=== PATIENT | male | born 1940 | race Caucasian/White ===

== ENCOUNTER → 2017-09-10 16:22 | Outpatient (CLI) | payer MEDICARE, OTHER, SELFPAY | PROVIDERS: Family Provider Family Medicine; PCP Family Medicine; Visit Provider Orthopaedic Surgery | DX: Z01.818 Encounter for other preprocedural examination (principal) | CPT/HCPCS: 93005 ==

== ENCOUNTER 2017-10-06 09:34 | Day surgery (SDC) | payer MEDICARE, OTHER, SELFPAY ==
[2017-10-02 13:54] VITALS: BMI 30.7
[2017-10-06] VITALS (12 sets, daily range): BP systolic 92–155; BP diastolic 47–80; PULSE 57–70; RESP 12–20; TEMP 35.8–36.3; O2SAT 90–98; BMI 30.4
[2017-10-06] MEDS: CELECOXIB 200 MG CAPSULE PO (10:13)
[2017-10-06] MEDS: LACTATED RINGERS 1,000 ML 42 ML IV (10:13)
[2017-10-06] MEDS: PREGABALIN 75 MG CAPSULE PO (10:13)
[2017-10-06] MEDS: ACETAMINOPHEN 325 MG TABLET 975 MG PO ×3 (10:13→22:11)
[2017-10-06] MEDS: fentaNYL 100 MCG/2 ML INJ IV (10:57)
[2017-10-06] MEDS: MIDAZOLAM 2 MG/2 ML VIAL IV (10:57)
--- NOTE | 2017-10-06 10:58 | SUR.PREOP ---
Femoral block done by Dr Reardon between 1045 and 1055. Patient rec'd 2L/min O2 via NC throughout. Fentanyl 50 mcg and Midazolam 2mg IV. Cardiac monitoring with RSR seen. Tolerated well.
--- NOTE | 2017-10-06 11:00 | SUR.PREOP ---
Block start time [1045] . Monitoring initiated and maintained throughout procedure. Oxygen and medications given per anesthesiologist instructions. Patient remained stable throughout procedure, no adverse reactions noted. Block end time [1055].
--- NOTE | 2017-10-06 11:35 | PM.PREOP ---
Pre-operative Note Interval Note Pre-op Check: Yes History & Physical Reviewed by Physician and Yes Exam Performed Changes: No
[2017-10-06] MEDS: CEFAZOLIN 2 GM/100 ML FROZ.PIGGY IV ×2 (11:45→21:00)
--- NOTE | 2017-10-06 12:18 | SUR.OPER ---
Supine on padded OR bed. Pillow under head, arms secured on padded armboards <90 degree abduction. Safety belt across torso. Non-operative leg secured with tape over blanket over lower leg. Operative leg secured in DeMayo/Kin positioner.
[2017-10-06] MEDS: BUPIVACAINE 0.25% W/ EPI VIAL 50 ML INJ (12:32)
[2017-10-06] MEDS: BUPIVACAINE LIPOSOME 266 MG/20 ML VIAL INJ (12:33)
[2017-10-06] MEDS: SODIUM CHLORIDE 0.9% FLUSH 20 ML IV (12:40)
[2017-10-06] MEDS: MORPHINE 4 MG/ML INJ IV (12:42)
--- NOTE | 2017-10-06 13:36 | DI.RAD.S_ITS ---
PROCEDURE: XR KNEE RT 1TO2V INDICATIONS: post operative total right knee TECHNIQUE: 2 view(s) of the knee acquired. COMPARISON: [facility] [place], NEETA, XR KNEE ARTHRITIC SERIES RT, 07/23/2017, 15:28. FINDINGS: Bones: Patient is status post knee joint arthroplasty. Hardware components are in expected positions. Visualized bony structures are intact. Soft tissues: Overlying postoperative changes are noted. IMPRESSION: Acute postoperative changes of total right knee arthroplasty. Dictated by: Forrest Leger M.D. on 10/06/2017 at 14:34 Approved by: Forrest Leger M.D. on 10/06/2017 at 14:35
--- NOTE | 2017-10-06 13:39 | P.OP_ITS ---
Operative Date/Time/Diagnoses Date of procedure: 10/06/17 Time of procedure: 13:30 Pre-op diagnosis: Right knee osteoarthritis Post-op diagnosis: same Procedure & Clinicians Procedure: Right total knee replacement Same procedure as scheduled: Yes Indications: The patient has had progressively worsening right knee pain with radiographic changes consistent with arthritis. Non-operative management has failed and the patient has requested total knee replacement. The risks, benefits and alternatives to surgery were discussed with the patient prior to proceeding. Risks discussed included, but were not limited to, failure to relieve pain, stiffness, infection, nerve damage, deep venous thrombosis, pulmonary embolism, stroke, coma, heart attack, permanent paralysis and , as well as the potential need for eventual revision of the prosthetic. Surgeon: Kavon Freeman Pasteurizing Machine Operator: Bettie Dickey Click Yes if Unassisted: No Anesthesia Type: Spinal, Sedation, Peripheral nerve block and Local Operative Notes Findings: Severe medial and moderate patellofemoral osteoarthritis Closure Type: primary Specimen(s): none sent Implants & Drains: Implants used in this procedure were manufactured by the [employer] and [employer] and included the BCS II Journey total knee replacement with a size 8 right cobalt chromium femoral component, 7 right non porous tibial base plate, 9 mm cross-linked polyethylene tibial insert and a 38 mm oval ghada II patellar component. Applied: implant(s) Estimated Blood Loss (mL): 100 Blood products transfused: none Tourniquet time (min): 53 Procedure in detail: The patient was seen in the pre-operative area, where the patient identified the right knee as the operative site and this was marked with my initials. The patient received pre-operative antibiotics, and was taken to the operating room and placed on the operative table in the supine position. After satisfactory anesthesia, a multimedia engineer out was performed. The right leg was encircled with a tourniquet about the proximal thigh, and the leg was prepared from the toes to the tourniquet with ChloroPrep in the usual fashion and draped through sterile drapes. The leg was elevated and exsanguinated with Eschmark bandage and the tourniquet inflated to 250 mmHg pressure. The knee was approached through an approximately 18 cm incision centered over the patella and carried into the knee through a medial parapatellar arthrotomy. The anterior osteophytes and soft tissues were removed. The rotational landmarks of Valley's line and the transepicondylar axis were marked on the femur with electrocautery, and intramedullary guide holes for the femur and tibia were created. The distal femoral cut was made in 6 degrees of valgus using the intramedullary guide at the primary cut setting. The proximal tibial cut was then made using the intramedullary guide, taking 9 mm of bone off the less involved side. The extension gap was checked and the rotation of the femoral component confirmed with the gap balancing system. The anterior, posterior and chamfer cuts were then made. The posterior osteophytes and soft tissues were then removed. The posterior capsule was injected with part of a mixture of 50 ml 0.25% Marcaine mixed with 20 ml Exparel and 4 mg of morphine for post-operative pain control. The remainder of this mixture was injected into the capsule and subcutaneous tissues during cement curing. The tibia was prepared with the rotation set by an extra medullary guide. Trial tibial and femoral components were then placed and the intercondylar notch cut through the femoral trial. Range of motion was 0-135 degrees, with good stability throughout the range. The patella was then cut to accommodate the patellar prosthetic. There was no need for a lateral release. The trials were then removed, and the femoral hole plugged with a bone plug. The bone was prepared with pulsatile lavage, and dried with a sponge. Cement was applied and the final prosthetics placed. Excess cement was removed during and after cement curing. After confirming there was no extruded cement posteriorly, the final tibial insert was placed. The knee was copiously irrigated and the tourniquet deflated. Hemostasis was obtained. The capsule was closed with interrupted # 2 polyester suture. The subcutaneous layer was closed with 3-0 Vicryl, and the skin with a running 3-0 V-Lock suture and SteriStrips. An Aquacel Ag dressing was applied and the patient was taken to recovery having tolerated the procedure well. Complications: none Condition: stable Disposition: PACU Plan for aftercare: The patient will be maintained on a standard total knee replacement protocol with weight bearing as tolerated. The patient will receive aspirin and sequential compression devices for DVT prophylaxis. The patient will be discharged home when safe for the home environment.
--- NOTE | 2017-10-06 14:28 | SUR.PHASEI ---
Report called to JOAQUINA Henson. Pt transferred to the floor by JOAQUINA Stephenson.
[2017-10-06] MEDS: LACTATED RINGERS 1,000 ML 125 ML IV ×2 (14:47→23:57)
[2017-10-06] MEDS: HYDROMORPHONE 0.5 MG INJ IV (14:55)
[2017-10-06] MEDS: OXYCODONE IR 5 MG TABLET PO ×2 (15:17→22:35)
[2017-10-06] MEDS: IBUPROFEN 600 MG TABLET PO (16:30)
--- NOTE | 2017-10-06 18:03 | PT.IIE ---
Current Diagnoses Bilateral primary osteoarthritis of knee (10/06/17) Surgery Performed Operation Date: 10/06/17 11:45 Actual Procedures p Total Knee Arthroplasty(Right) - Kavon Freeman MD Surgical History (Last Updated 10/02/17 @ 14:52 by Akosua Ochoa, RN) H/O transurethral resection of prostate (Acute) Hx of elbow surgery (Acute) Hx of left inguinal hernia repair (Acute) Medical History (Last Updated 10/02/17 @ 14:52 by Akosua Ochoa, RN) Chronic cough (Acute) Elevated cholesterol (Acute) Hypothyroidism (Acute) Kidney stone (Acute) Physical Therapy Inpatient Evaluation/Re-Eval M1 PT/OT-IP Prior Functional Status Start: 10/06/17 17:49 Freq: NEEDED Status: Active Protocol: Document 10/06/17 17:45 DLM (Rec: 10/06/17 18:03 DLM [id number]) Medical Review Prior Functional Status Medical History Reviewed Yes Diet/Fluid Consistency Regular Communication WNL Mobility and Gait Independent without device, likes to walk 3 miles for exercise Activities of Daily Living and IADL's Independent Prior Functional Level (Other details) knee pain was interfering with his ability to walk before this sx Social History Household Members spouse Living Arrangements House Number of Floors (Floors) One Floor Number of Stairs To Enter/Railing? 3, rail Home Environment High Toilet Home Equipment Front Wheel Walker Straight Cane Employment Status Retired Additional Social History Comment he is borrowing a fWW ( bariatric), he wanted to get rails that attached to his toilet but was unable to find them before surgery M2 PT-IP Current Condition Start: 10/06/17 17:49 Freq: NEEDED Status: Active Protocol: Document 10/06/17 17:45 DLM (Rec: 10/06/17 18:03 DLM [id number]) Physical Therapy Current Condition Current Condition Evaluation Date 10/06/17 Treatment Diagnosis right TKA, impaired gait Onset Date 10/06/17 Weight Bearing Status Weight Bearing Status Weight Bear as Tolerated M3 PT-IP Subjective Start: 10/06/17 17:49 Freq: NEEDED Status: Active Protocol: Document 10/06/17 17:45 DLM (Rec: 10/06/17 18:03 DLM [id number]) Subjective Physical Therapy Visit Type Type Initial Evaluation Visit Start Time 14:50 Visit Stop Time 15:45 Total Visit Minutes 55 Number of SURVEY ASSOCIATE Visits 0 Physical Therapy Visit Comments Patient Comments His knee hurts when trying to lie straight, he wants to get out of bed Therapy Pain Assessment Pain When Pain Assessed After Treatment Pain Present Pain Present Pain Reported Location Rt Knee Intensity 5 Scale Used Numeric (1 - 10) Description Aching Pain Behaviors Wincing Pain Management Techniques Apply Cold Re-positioning M4 PT-IP Mobility and Gait Start: 10/06/17 17:49 Freq: NEEDED Status: Active Protocol: Document 10/06/17 17:45 DLM (Rec: 10/06/17 18:03 [facility] [id number]) PT-Bed Mobility Assessment Supine to Sit Supine to Sit Standby Assistance Sit to Supine Sit to Supine Minimal Assistance Scooting Scooting to Edge of Bed Standby Assistance PT-Transfer Assessment Sit to and From Stand Sit to and from Stand Contact Guard Assistance Equipment Transfer Assistive Device Gait Belt Front Wheeled Walker Transfers Transfer Destination Chair Transfer Technique Stand Step Pivot Transfer Ability Level of Assist Contact Guard Assistance Comments Mobility Comments pt incontinent of urine while moving this visit, depends put on to manage urine leakage Gait Assessment Gait Gait Assistance Required: Contact Guard Assist Distance (Feet) (feet) 10 Able to Maintain Weight Bearing Status Yes During Gait Assistive Devices Assistive Device Gait Belt Front Wheeled Walker Gait Deviations General Gait Pattern Antalgic Factors Limiting Gait Function Factors Limiting Gait Function Decreased Activity Tolerance Decreased Strength Limited Range of Motion Pain Comments Gait Comments He became nauseated during gait around his bed, sat on edge of bed but symptoms did not resolve, noted pt pale. Pt returned to supine where his symptoms improved. PT-Balance Assessment Sitting Balance and Reactions Static Sitting Balance Ability Normal Dynamic Sitting Balance Ability Normal Standing Balance and Reactions Static Standing Balance Ability Good Dynamic Standing Balance Ability Fair Device Used fWW M5 PT-IP Objective Assessments Start: 10/06/17 17:49 Freq: NEEDED Status: Active Protocol: Document 10/06/17 17:45 DLM (Rec: 10/06/17 18:03 [facility] [id number]) Orientation Orientation/Cognition Level of Alertness Alert Orientation Name Age Birthday Month Date Year Day of Week Place Situation Language Function Ability No Deficits Noted Safety Awareness Understands Safety Issues Memory Description No Deficits Noted Gross Range of Motion Upper Extremity ROM Assessment Within Functional Limits Lower Extremity ROM Assessment Right Impaired Impairments tolerated 90 degrees knee flexion in sitting, knee ext in supine lacking 20 degrees with pain Strength Upper Extremity Strength Assessment Within Functional Limits Lower Extremity Strength Assessment Right Impaired Hip able to move right LE in bed, can lift LE off bed with pain Knee knee ext seated 2+/5 Ankle DF 4+/5 Coordination Assessment Gross Coordination Gross Coordination WNL Sensation Assessment Sensation Gross Sensation Right LE Impaired Light Touch Impaired Sensation Description Numbness Comments Sensation Comments post-op numbness around right knee Muscle Tone Muscle Tone WNL Yes M6 PT-IP Treatment Start: 10/06/17 17:49 Freq: NEEDED Status: Active Protocol: Document 10/06/17 17:45 DLM (Rec: 10/06/17 18:03 DLM [id number]) Physical Therapy Treatment Exercises Exercises Ankle Pumps Education Education Provided Weight Bearing Status Safety M7 PT-IP Assessment and Plan Start: 10/06/17 17:49 Freq: NEEDED Status: Active Protocol: Document 10/06/17 17:45 DLM (Rec: 10/06/17 18:03 DLM [id number]) PT Summary Assessment and Plan Potential Rehabilitation Potential Good Status of Condition at Evaluation Evolving Summary Impairments Pain ROM Strength Balance Sensation Bed Mobility Transfers Gait Activity Tolerance Assessment Summary Decreased tolerance for activity this visit with pt getting nauseated and light- headed when up. He c/o difficulty managing his knee pain. Pt incontinent of urine this visit. Pt sat up in recliner and ambulated around the bed. He had to return to supine to manage his symptoms. He is movitated to return home at discharge. His is present and supportive. Will plan for discharge home in 1-2 more days as pt progresses. Goals Bed Mobility Goal Independent Transfer Goal Independent Front Wheeled Walker Gait Goal Independent Front Wheel Walker Gait Distance 100 Other Goals up and down 3 steps with rail and cane with SBA. Days to Meet Goals 3 Frequency of Treatment Frequency Of Treatment Twice a Day Treatment Plan Physical Therapy Treatment Plan Bed Mobility Training Transfer Training Gait Training Therapeutic Exercise Post Op Education Discharge Planning Hot or Cold Pack Other Recommendations and Next Treatment provide post-op packet, Focus monitor BP when up moving Recommendations To Nursing Amount of Assist Needed 1 Person Assist Discharge Recommendations PT Discharge Recommendations Home with Assistance Outpatient PT
[2017-10-06] MEDS: DOCUSATE 100 MG CAPSULE PO (22:11)
[2017-10-06] MEDS: ATORVASTATIN 20 MG TABLET PO (22:12)
[2017-10-06] MEDS: ASPIRIN EC 81 MG TABLET PO (22:12)
[2017-10-06] MEDS: TAMSULOSIN 0.4 MG CAPSULE PO (22:12)
[2017-10-07 00:31] VITALS: BP 143/73; PULSE 59; RESP 13; TEMP 36.3; O2SAT 96
[2017-10-07] MEDS: IBUPROFEN 600 MG TABLET PO (01:51)
[2017-10-07] MEDS: OXYCODONE IR 5 MG TABLET PO ×3 (01:51→09:08)
[2017-10-07] MEDS: CEFAZOLIN 2 GM/100 ML FROZ.PIGGY IV (04:35)
[2017-10-07 04:39] VITALS: BP 129/75; PULSE 54; RESP 14; TEMP 36.4; O2SAT 93
[2017-10-07 05:32] LABS: Hematocrit 38.9 % (41-53); Hemoglobin 13.3 g/dL (13.5-17.5)
--- NOTE | 2017-10-07 07:37 | PM.DS.1 ---
History of Present Illness Date Patient Seen: 10/07/17 Time Patient Seen: 07:20 Chief complaint: [place] [id number] Narrative: The history and physical examination are contained in the chart previously completed note. Please refer to that note for this information. Discharge Providers Date of admission: 10/06/17 09:34 Primary care physician: Ban Sevilla MD Consults: 10/06/17 14:37 Consult to Discharge Planning Routine Comment: Consult to Physical Therapy Evaluate & Treat Comment: Physician Instructions: postop TKA protocol Discharge provider: Kavon Freeman MD Discharge Date: 10/07/17 Summary Discharge Diagnosis: 1. Right knee osteoarthritis 2. Mild post hemorrhagic anemia Hospital Course: The patient was admitted the hospital and taken directly to the operating room where he underwent a right total knee replacement without complications. He was comfortable on postoperative day 1 and it is anticipated he will be able to go home later today. Status at Discharge Cognitive/behavioral status at discharge: At baseline. Functional status at discharge: uses cane/walker Overall status at discharge: patient is progressing back to baseline Time Spent with Patient Less than 30 minutes Exam Vital Signs (past 8 hours): - 10/07/17 00:31 10/07/17 04:39 Temperature 97.4 F L 97.6 F Pulse Rate 59 L 54 L Respiratory Rate 13 14 Blood Pressure 143/73 H 129/75 H Pulse Oximetry 96 93 Oxygen Delivery Method Room Air Oxygen Flow Rate 0 Narrative Exam Narrative: Right knee wound is dressed with no drainage on the bandage. Calf is soft. Light touch and motion are intact in the right lower extremity. Objective Labs Result Diagrams: 10/07/17 05:12 Labs: Laboratory Results - last 24 hr 10/07/17 05:12 Hgb 13.3 L Hct 38.9 L radiographs reveal an appropriately positioned right total knee prosthesis with no signs of complications. Discharge Plan Discharge Plan Patient Disposition: Home, Self-Care Discharge Med Rec/Prescriptions Prescriptions: New oxycodone 5 mg Tablet 5 mg PO Q3HR PRN (Reason: Pain, Moderate (4-6)) Qty: 60 RF: 0 aspirin 81 mg Tablet,Delayed Release (Dr/Ec) 81 mg PO BID 45 Days Qty: 90 RF: 0 ibuprofen 600 mg Tablet 600 mg PO Q6HR PRN (Reason: As Needed For Fever/Mild Pain) Qty: 100 RF: 0 No Action atorvastatin 20 mg Tablet 20 mg PO BEDTIME RF: 0 aspirin 81 mg Tablet,Delayed Release (Dr/Ec) 81 mg PO BEDTIME RF: 0 tamsulosin 0.4 mg Capsule 0.4 mg PO BID RF: 0 dutasteride 0.5 mg Capsule 0.5 mg PO DAILY RF: 0 levothyroxine 150 mcg Capsule 150 mcg PO BEDTIME RF: 0 Follow up/Referrals: Kavon Freeman MD [Physician] - 3-5 Days Provider Discharge Instructions Diet: Diet as Tolerated Activity: Weight bear as tolerated on the right leg. Gently work on range of motion until physical therapy starts. You should have physical therapy within the next day to 2 days. Cold/Heat Therapy: Apply ice as needed through the bandage to the right leg Skin/Wound/Dressing Care Report to your healthcare provider any signs of infection, such as:: chills, fever, night sweats, increased pain and unusual drainage Dressing: Remove the Reed wrap 3 days after surgery. At that time you can shower normally. Keep the deeper dressing in place. Call the office if the deeper dressing becomes saturated with either water or blood. Discharge Data Primary Care Provider: Ban Sevilla Attending Provider: Kavon Freeman Admit Date/Time: 10/06/17 09:34 Quality VTE Deep Vein Thrombosis/Pulmonary Embolism Present on Admission: No
[2017-10-07 08:10] VITALS: BP 144/84; PULSE 60; RESP 16; TEMP 36.3; O2SAT 95
--- NOTE | 2017-10-07 09:00 | PT.IPTN ---
Current Diagnoses Hypothyroidism, unspecified (10/06/17) Pure hypercholesterolemia, unspecified (10/06/17) Unilateral primary osteoarthritis, right knee (10/06/17) Personal history of nicotine dependence (10/06/17) Surgery Performed Operation Date: 10/06/17 11:45 Actual Procedures p Total Knee Arthroplasty(Right) - Kavon Freeman MD Physical Therapy Treatment Note M2 PT-IP Current Condition Start: 10/06/17 17:49 Freq: NEEDED Status: Discharge Protocol: Document 10/06/17 17:45 DLM (Rec: 10/06/17 18:03 DLM [id number]) Physical Therapy Current Condition Current Condition Evaluation Date 10/06/17 Treatment Diagnosis right TKA, impaired gait Onset Date 10/06/17 Weight Bearing Status Weight Bearing Status Weight Bear as Tolerated M3 PT-IP Subjective Start: 10/06/17 17:49 Freq: NEEDED Status: Discharge Protocol: Document 10/07/17 09:00 [facility] (Rec: 10/09/17 16:19 [facility] [id number]) Subjective Physical Therapy Visit Type Type Treatment Note Visit Start Time 08:15 Visit Stop Time 09:00 Total Visit Minutes 45 Number of TALENT DEVELOPMENT MANAGER Visits 0 Physical Therapy Visit Comments Patient Comments Reports he hopes to go home today. Therapy Pain Assessment Pain When Pain Assessed During Mobility Pain Present Pain Present Pain Reported Location Rt Knee Intensity 4 Scale Used Numeric (1 - 10) Description Aching Pain Management Techniques Apply Cold Re-positioning M4 PT-IP Mobility and Gait Start: 10/06/17 17:49 Freq: NEEDED Status: Discharge Protocol: Document 10/07/17 09:00 [facility] (Rec: 10/09/17 16:19 [facility] [id number]) PT-Transfer Assessment Sit to and From Stand Sit to and from Stand Standby Assistance Equipment Transfer Assistive Device Gait Belt Front Wheeled Walker Transfer Ability Level of Assist Standby Assistance Gait Assessment Gait Gait Assistance Required: Standby Assistance Distance (Feet) (feet) 200 Able to Maintain Weight Bearing Status Yes During Gait Assistive Devices Assistive Device Gait Belt Front Wheeled Walker Gait Deviations General Gait Pattern Antalgic Factors Limiting Gait Function Factors Limiting Gait Function Decreased Activity Tolerance Decreased Strength Limited Range of Motion Pain Comments Gait Comments Pt amb about 150ft with FWW w/ step to gait then rested in w/ c and was brought to stairs. After stairs, pt amb 50ft further with FWW Stair Climbing Assessment Evaluation Level of Assist On Stairs Contact Guard Assistance Devices Stair Climbing Assistive Devices Straight Cane Left Railing Technique/Endurance Stair Climbing Direction Ascend and Descend Stair Climbing Technique Step to Step Number of Steps Climbed 3 Query Text: M5 PT-IP Objective Assessments Start: 10/06/17 17:49 Freq: NEEDED Status: Discharge Protocol: Document 10/07/17 09:00 [facility] (Rec: 10/09/17 16:19 [facility] [id number]) Orientation Orientation/Cognition Level of Alertness Alert Orientation Name Age Birthday Month Date Year Day of Week Place Situation Language Function Ability No Deficits Noted Safety Awareness Understands Safety Issues Memory Description No Deficits Noted M6 PT-IP Treatment Start: 10/06/17 17:49 Freq: NEEDED Status: Discharge Protocol: Document 10/07/17 09:00 [facility] (Rec: 10/09/17 16:19 [facility] [id number]) Physical Therapy Treatment Other Treatments Other Treatment Performed Review HEP & discuss what each exercise is and discussed home safety and where to get DME. M7 PT-IP Assessment and Plan Start: 10/06/17 17:49 Freq: NEEDED Status: Discharge Protocol: Document 10/07/17 09:00 [facility] (Rec: 10/09/17 16:19 [facility] [id number]) PT Summary Assessment and Plan Summary Assessment Summary Pt was able to ambulate safely , go up/down stairs, and review HEP and verbalize understanding. was present for session & was educated on helping him with lower body dressing & washing. She was agreeable. Discussed how to help him in/out of bed if needed with min assist to RLE. Recommendations To Nursing Amount of Assist Needed 1 Person Assist Discharge Recommendations PT Discharge Recommendations Home with Assistance Outpatient PT
[2017-10-07] MEDS: ACETAMINOPHEN 325 MG TABLET 975 MG PO (09:07)
[2017-10-07] MEDS: ASPIRIN EC 81 MG TABLET PO (09:07)
[2017-10-07] MEDS: DUTASTERIDE 0.5 MG CAPSULE PO (09:07)
[2017-10-07] MEDS: DOCUSATE 100 MG CAPSULE PO (09:08)
[2017-10-07] MEDS: TAMSULOSIN 0.4 MG CAPSULE PO (09:08)
--- NOTE | 2017-10-07 10:55 | PC.NURSE ---
Pt is doing well and has been cleared by P.T. to go home today. His dressing to r.knee is aquacel with nara wrap. Area is cdi. Given 10mg of po percolone for pain and tylenol. Pt back to bed and sleeping now.
--- NOTE | 2017-10-07 14:00 | CM.DANOTE ---
Discharge Planning/Care Management CM Discharge Assessment Start: 10/07/17 13:58 Freq: Status: Discharge Protocol: Document 10/07/17 13:58 (Rec: 10/07/17 13:59 [id number]) Discharge Planning Assessment Assigned Aboriginal Education Worker Coordinator MILLING MACHINE OPERATOR Advance Directives? Yes Advance Directives on File No History Provided By Patient Family Member Medical Record Has Patient been admitted in last 30 No days? Prior Living Arrangements House Household Members spouse Type of transporation used prior to Drives own vehicle admit Independent with ADL's Yes Is patient alert and oriented? Yes DME Already Rented / Owned Cane Patient/Family Preference OP PT Therapy Comment [place], [place] Discharge Plan Home Community Services Physical Therapy Referrals Initiated None needed Whiteboard Updated in Patient Room with Yes name and ext. # of Aboriginal Education Worker Coordinator Review Status In Process Next Review Type Continued Stay Review
== END 2017-10-07 12:01 | disposition home or self-care (01) ==
LOC: AC 10-07 07:37 → OR 10-07 14:48
PROVIDERS: Family Provider Family Medicine; PCP Family Medicine; Visit Provider Orthopaedic Surgery
PROC: 0SRC0JZ Replacement of Right Knee Joint with Synthetic Substitute, Open Approach (ICD-10-PCS; CPT 27447; principal; 2017-10-06 11:45)
DX: M17.11 Unilateral primary osteoarthritis, right knee (principal); Z87.891 Personal history of nicotine dependence; E03.9 Hypothyroidism, unspecified; E78.00 Pure hypercholesterolemia, unspecified
CPT/HCPCS: 27447; 36415; 73560; 85014; 85018; 97116; 97162; 97530; C1776; C9290; J0690; J1170; J2250; J2270; J2704; J3010

== ENCOUNTER → 2017-10-13 10:43 | Outpatient (CLI) | payer MEDICARE, OTHER, SELFPAY ==
[2017-10-06 14:40] VITALS: BMI 30.4
--- NOTE | 2017-10-13 | DI.US.S_ITS ---
PROCEDURE: US PERIPH VENOUS LOW EXTREM RT INDICATIONS: EDEMA OF RIGHT LOWER EXTREMITY TECHNIQUE: Real-time imaging, as well as color and pulse Doppler interrogation, were performed of the lower extremity deep veins from the inguinal ligament to the popliteal fossa. COMPARISON: None. FINDINGS: The deep veins are normally compressible, and free of intraluminal thrombus. Color and pulse Doppler demonstrate normal phasic intraluminal flow. There is normal augmentation response to distal compression maneuver. IMPRESSION: No deep venous thrombosis identified within the right lower extremity. Dictated by: Shay JIMÉNEZ Interpreted: Silviano Wright MD on 10/13/2017 at 11:36 Approved by: Silviano Wright M.D. on 10/13/2017 at 13:21
== END ==
PROVIDERS: PCP Family Medicine; Visit Provider Physician Assistant Medical
DX: R60.0 Localized edema (principal)
CPT/HCPCS: 93971

== ENCOUNTER → 2020-06-29 10:13 | Outpatient (CLI) | payer MEDICARE, OTHER, SELFPAY ==
[2017-10-06 14:40] VITALS: BMI 30.4
--- NOTE | 2020-06-29 10:24 | DI.CT.S_ITS ---
PROCEDURE: CT SINUS SCREEN WO CON INDICATIONS: Other specified disorders of nose and nasal sinuses. Pain. No prior surgery. TECHNIQUE: Noncontrast 3.0 mm axial images acquired from the frontal sinuses to the mid-sella, with coronal and sagittal reformats. For radiation dose reduction, the following was used: automated exposure control, adjustment of mA and/or kV according to patient size. COMPARISON: [facility], CT, SINUS SCREEN WO CONTRAST, 01/24/2014, 10:38. FINDINGS: Maxillary Sinuses: Small 1 cm retention cysts noted in the floor the right maxillary sinus. Remainder of the maxillary sinuses are clear. Both ostiomeatal units are clear. No significant Maykel ethmoid air cells present along the inferior medial orbital whatley. Sphenoid Sinuses: The sphenoethmoidal recesses are patent and unobstructed. The sphenoid sinuses are clear. Sphenoid pneumatization pattern is sellar, extending posteriorly beyond the tuberculum sella. No [place] or sphenoethmoidal air cells present. The optic nerve is well covered. Small 5 mm retention cyst noted on the left. Frontal Sinuses: The frontal recesses are both patent. The frontal sinuses are clear. Minimal mucosal thickening noted along the floor of the both frontal sinus measures up to 3 mm thickness. Ethmoid Sinuses: The ethmoid air cells are clear without significant mucosal thickening or air-fluid levels. The fovea ethmoidalis and cribriform plate are unremarkable. The lamina papyracea are both structurally intact. Lateral lamella are symmetric. Nasal Cavity and Septum: Nasal turbinates unremarkable without pneumatization. No evidence of a septal perforation. There is moderate nasal septal deviation to the left. Skull Base: The anterior cranial fossa and pituitary sella are unremarkable. No evidence of bony dehiscence. Both osseous orbits and contents are within normal limits. IMPRESSION: Improved small scattered retention cysts without evidence of paranasal sinus obstruction. Stable nasal septal deviation. Dictated by: Jm Marie M.D. on 06/29/2020 at 10:03 Approved by: Jm Marie M.D. on 06/29/2020 at 10:20
== END ==
PROVIDERS: PCP Family Medicine; Referring Provider Otolaryngology; Visit Provider Otolaryngology
DX: J32.4 Chronic pansinusitis (principal); J34.89 Other specified disorders of nose and nasal sinuses; J34.1 Cyst and mucocele of nose and nasal sinus; J34.2 Deviated nasal septum
CPT/HCPCS: 70486

== ENCOUNTER → 2021-10-23 09:04 | Outpatient (CLI) | payer MEDICARE, OTHER, SELFPAY ==
[2017-10-06 14:40] VITALS: BMI 30.4
[2021-10-23 10:20] LABS: COVID19 -Nasal RAPID Negative (Negative)
== END ==
PROVIDERS: PCP Family Medicine; Visit Provider Surgery
DX: Z20.822 Contact with and (suspected) exposure to COVID-19 (principal); Z01.812 Encounter for preprocedural laboratory examination
CPT/HCPCS: 87635; C9803

== ENCOUNTER 2021-10-24 10:45 | Day surgery (SDC) | payer MEDICARE, OTHER, SELFPAY ==
[2017-10-06 14:40] VITALS: BMI 30.4
[2021-10-15 15:22] VITALS: BMI 30.1
[2021-10-24] VITALS (8 sets, daily range): BP systolic 124–132; BP diastolic 66–79; PULSE 52–65; RESP 10–16; TEMP 36–36.6; O2SAT 96–98; BMI 30.1
[2021-10-24] MEDS: LACTATED RINGERS 1,000 ML 100 ML IV (11:16)
--- NOTE | 2021-10-24 13:02 | PM.HP.1 ---
History of Present Illness History of Present Illness Date Patient Seen: 10/24/21 Time Patient Seen: 13:02 Chief complaint: SDC Narrative: 80-year-old man with right inguinal hernia here for elective open inguinal hernia repair with mesh. No interval changes health. Please refer the HP from August 2021 for further detail. Patient History Medical History Chronic cough Elevated cholesterol Hypothyroidism Kidney stone Surgical History H/O transurethral resection of prostate History of arthroplasty of right knee (10/06/17) Hx of elbow surgery Hx of left inguinal hernia repair Hx of prostatectomy (~07/2021) Family & Social History Social History: household members spouse Tobacco & Substance use: Tobacco type cigarettes,pipe,cigars Smoking Status Former smoker alcohol intake current alcohol intake frequency a few times a week Substance Use Type does not use Meds Home Medications and Allergies Home Medications Medication Instructions Recorded Confirmed Type atorvastatin 20 mg tablet 20 mg PO BEDTIME 10/02/17 10/24/21 History levothyroxine 150 mcg capsule 150 mcg PO BEDTIME 10/03/17 10/24/21 History ibuprofen 600 mg tablet 600 mg PO Q6HR PRN As Needed For 10/07/17 10/24/21 Rx Fever/Mild Pain #100 tabs oxybutynin chloride 15 mg 15 mg PO DAILY 09/20/21 10/24/21 History tablet,extended release 24 hr PreserVision AREDS-2 1 tab DAILY 10/24/21 10/24/21 History Allergies Allergy/AdvReac Type Severity Reaction Status Date / Time No Known Drug Allergies Allergy Verified 10/24/21 11:04 Exam Vital Signs (past 8 hours): - 10/24/21 11:16 Temperature 97.1 F L Pulse Rate 52 L Respiratory Rate 16 Blood Pressure 131/76 Pulse Oximetry 96 Oxygen Delivery Method Room Air Oxygen Delivery Method Room Air Narrative Exam Narrative: General adult male alert oriented no acute distress Abdomen right inguinal hernia marked with my initials Assessment & Plan Assessment and plan (1) Right inguinal hernia: Status: Acute Assessment & Plan narrative: 80-year-old man with a symptomatic reducible right inguinal hernia here for elective open right inguinal hernia repair with mesh. Reviewed the operation plan as well as the operative risks including bleeding, infection, chronic pain, damage to surrounding structures, recurrence. His questions have been answered and he is in agreement with this plan. Time Spent With Patient Critical Care time: I spent a total of [] minutes of critical care time on this patient's care today; this time is exclusive of procedural time.
[2021-10-24] MEDS: CEFAZOLIN 2 GM/100 ML PREMIX 100 ML IV (13:18)
[2021-10-24] MEDS: BUPIVACAINE 0.5% MDV 50 ML INJ (13:31)
--- NOTE | 2021-10-24 13:33 | SUR.OPER ---
Supine on padded OR bed, head on pillow, arms secured on padded arm boards at <90 degrees abduction, legs uncrossed, safety belt at thigh, tape over blanket over lower legs.
--- NOTE | 2021-10-24 13:37 | SUR.OPER ---
Patient's glasses placed in ziplock back with patient sticker in OR and taken to PACU with patient.
--- NOTE | 2021-10-24 14:21 | P.OP_ITS ---
Operative Date/Time/Diagnoses Date of procedure: 10/24/21 Time of procedure: 14:22 Pre-op diagnosis: Right inguinal hernia Post-op diagnosis: same Procedure & Clinicians Procedure: Open right inguinal hernia repair with mesh Same procedure as scheduled: Yes Indications: Symptomatic reducible right inguinal hernia Surgeon: Aamir Dickens Anesthesia Type: General Operative Notes Findings: Indirect hernia. No floor defect Specimen(s): none sent Estimated Blood Loss (mL): 50 Procedure in detail: The patient was placed supine on the table and bilateral lower extremity compression devices were applied. Anesthesia was induced they were intubated with an LMA and received Clindamycin. A time-out was performed. They were p repped and draped in sterile fashion. The right external inguinal ring and the anterior superior iliac crest were identified and marked. 1 finger breath above the inguinal ligament the skin was infiltrated with 0.25% bupivacaine. The skin incision was made here and the subcutaneous tissues were divided with electrocautery exposing the external oblique aponeurosis which was then opened along the direction of its fibers. Using blunt dissection the internal oblique aporneurosis was from the external oblique upper leaflet to identify the iliohypogastric nerve. Using a kittner the cord was carefully dissected away from the inguinal canal adjacent to the pubic tubercle. The cord including the vas deferens, testicular bloody supply, ilioguinal and genital nerve were encircled with a Kim drain. No direct floor defect was identified. The cremasteric fibers surrounding the cord were divided using electrocautery adjacent to the internal ring.. The vas deferens and the testicular vessels were preserved and protected. There was a moderate size indirect hernia on the anterior medial aspect of the cord which was skeletonized away from the vas deferens and testicular blood supply. The indirect hernia was skeletonized back to the internal ring and reduced spontaneously into the abdomen. I selected a 7x 15 cm lightweight Pro Loop hernia mesh. The inferior medial aspect of the mesh was anchored to insertion of the rectus muscle to the pubic tubercle such that there was approximately 2 cm of tubercle overlap with Ethibond and then was run continuously along the inferior edge of the mesh to the shelving edge of the inguinal ligament. Interrupted 3 0 Vicryl suture was used to anchor the superior aspect of the mesh to the conjoined tendon in several places. The andreina ls were then reapproximated loosely around the spermatic cord. The tails of the mesh were then tucked under the external oblique aponeurosis. The repair was checked for hemostasis. The wound was irrigated with sterile saline. The external oblique aponeurosis was reapproximated in a running fashion using 3 0 Vicryl. The subcutaneous tissues were reapproximated with 3 0 Vicryl skin closed with 4 0 Monocryl followed by the application of Dermabond. At the end of the operation I ensured that both testicles were within the scrotum. The sponge instrument count at the end operation was correct. The patient emerged from anesthesia was extubated and transferred to the postoperative care unit in stable condition. A total of 30 ml of of 0.25% bupivicaine was used to infiltrate the skin. Complications: none Post-operative Condition: stable Disposition: same day surgery
[2021-10-24] MEDS: OXYCODONE IR 5 MG TABLET PO ×2 (14:33→15:04)
[2021-10-24] MEDS: ACETAMINOPHEN 325 MG TABLET 975 MG PO (14:33)
== END 2021-10-24 15:15 | disposition home or self-care (01) ==
PROVIDERS: PCP Family Medicine; Referring Provider Surgery; Visit Provider Surgery
PROC: (CPT 49505; principal; 2021-10-24 12:15)
DX: K40.90 Unilateral inguinal hernia, without obstruction or gangrene, not specified as recurrent (principal); C61 Malignant neoplasm of prostate; E78.5 Hyperlipidemia, unspecified; Z87.891 Personal history of nicotine dependence
CPT/HCPCS: 49505; 82962; J0690; J1100; J2405; J2704; J3010